=== PATIENT | female | born 1990 | race Caucasian/White ===

== ENCOUNTER 2018-08-28 16:53 | Observation (INO) | payer OTHER ==
[~2018-08-28] VITALS: Ht 157.5 cm; Wt 68.7 kg
[2018-08-28] MEDS ORDERED: CALC-1038 PO (17:03)
[2018-08-28] MEDS ORDERED: FERR-89 PO (17:03)
[2018-08-28] MEDS ORDERED: PREN1TAB80 PO (17:03)
[2018-08-28 17:08] VITALS: BP 121/75
[2018-08-28] MEDS ORDERED: RINGERS SOLUTION,LACTATED 1,000 ML IV ONE (17:21)
[2018-08-28] MEDS: RINGERS SOLUTION,LACTATED 1,000 ML IV SCH ×2 (17:43→23:01)
[2018-08-29] MEDS: RINGERS SOLUTION,LACTATED 1,000 ML IV SCH (07:36)
== END 2018-08-29 12:00 | disposition home or self-care (01) ==
LOC: 4S 16:53
PROVIDERS: ADMIT Obstetrics & Gynecology; ATTEND Obstetrics & Gynecology
DX: O41.03X0 Oligohydramnios, third trimester, not applicable or unspecified (principal); Z3A.30 30 weeks gestation of pregnancy
CPT/HCPCS: 36415; 76811; 81002; 89060; G0378 ×2; J7120

== ENCOUNTER 2018-10-02 15:45 | Observation (INO) | payer OTHER ==
[~2018-10-02 15:45] MED LIST: CALC-1038 PO; FERR-89 PO; PREN1TAB80 PO
[2018-10-02 17:22] LABS: BASOPHILS % (AUTO) 0.2 % (0.0-2.0); EOSINOPHILS % (AUTO) 1.3 % (1.0-6.0); HEMATOCRIT 29.8 % (36-46); HEMOGLOBIN 9.8 g/dL (12.0-16.0); LYMPHOCYTES # (AUTO) 1.6 K/uL (1.0-4.8); LYMPHOCYTES % (AUTO) 13.2 % (22.0-44.0); MEAN CORPUSCULAR HEMOGLOBIN 31.7 pg (26.0-34.0); MEAN CORPUSCULAR VOLUME 96 fL (80-100); MONOCYTES # (AUTO) 1.1 K/uL (0.1-1.0); MONOCYTES % (AUTO) 9.1 % (2.0-9.0); NEUTROPHILS # (AUTO) 9.2 K/uL (1.8-7.7); NEUTROPHILS % (AUTO) 76.2 % (40.0-70.0); PLATELET COUNT (AUTO)-OB 173 K/uL (150-450); RED CELL DISTRIBUTION WIDTH 13.9 % (11.5-14.5)
[2018-10-02 17:31] LABS: ANION GAP 10 mmol/L (8-16); CALCIUM, TOTAL 8.9 mg/dL (8.8-10.5); CARBON DIOXIDE 25 mmol/L (22-29); CHLORIDE 106 mmol/L (98-107); CREATININE 0.65 mg/dL (0.60-1.30); GLOMERULAR FILTR. RATE CALC > 60 mL/min (>60); GLUCOSE,RANDOM 88 mg/dL (70-110); POTASSIUM 3.7 mmol/L (3.5-5.1); SODIUM SERUM 141 mmol/L (136-145); UREA NITROGEN, BLOOD 11 mg/dL (7-18)
[2018-10-02 17:37] LABS: ALANINE AMINOTRANSFERASE 23 U/L (12-78); ALBUMIN 2.5 g/dL (3.4-5.0); ALKALINE PHOSPHATASE 85 U/L (46-116); ASPARTATE AMINOTRANSFERASE 19 U/L (15-37); BILIRUBIN,TOTAL 0.1 mg/dL (0.1-1.0); TOTAL PROTEIN, SERUM 5.9 g/dL (6.4-8.2); URIC ACID 4.6 mg/dL (2.6-7.2)
[2018-10-02 20:11] VITALS: BP 118/58
== END 2018-10-02 18:40 | disposition home or self-care (01) ==
LOC: 4S 15:45
PROVIDERS: ADMIT Obstetrics & Gynecology; ATTEND Obstetrics & Gynecology
DX: O13.3 Gestational [pregnancy-induced] hypertension without significant proteinuria, third trimester (principal); Z3A.35 35 weeks gestation of pregnancy
CPT/HCPCS: 36415; 80053; 84550; 85025; G0378

== ENCOUNTER 2018-10-27 00:54 | Observation (INO) | payer OTHER ==
[~2018-10-27] VITALS: Ht 157.5 cm; Wt 72.6 kg
[2018-10-27 03:16] VITALS: BP 116/72
[2018-10-28] MEDS ORDERED: PRED20 PO (12:06)
[2018-10-28] MEDS ORDERED: VALA100026 PO (12:07)
== END 2018-10-27 02:25 | disposition home or self-care (01) ==
LOC: 4S 00:54
PROVIDERS: ADMIT Obstetrics & Gynecology; ATTEND Obstetrics & Gynecology
DX: O62.9 Abnormality of forces of labor, unspecified (principal); Z3A.38 38 weeks gestation of pregnancy

== ENCOUNTER 2018-10-28 10:39 | Observation (INO) | payer OTHER ==
[~2018-10-28] VITALS: Ht 157.5 cm; Wt 73.5 kg
[2018-10-28] MEDS ORDERED: ValACYclovir HCL 500 MG TABLET PO ONE (12:00)
[2018-10-28] MEDS ORDERED: PredniSONE 20 MG TABLET PO ONE (12:00)
[2018-10-28 12:01] VITALS: BP 118/68
[2018-10-28] MEDS ORDERED: PRED20 PO (12:06)
[2018-10-28] MEDS ORDERED: VALA100026 PO (12:07)
[2018-10-28] MEDS ORDERED: ACETAMINOPHEN 325 MG TABLET PO ONE (13:00)
== END 2018-10-28 13:15 | disposition home or self-care (01) ==
LOC: 4S 10:39
PROVIDERS: ADMIT Obstetrics & Gynecology; ATTEND Obstetrics & Gynecology
DX: O26.893 Other specified pregnancy related conditions, third trimester (principal); R29.810 Facial weakness; Z3A.39 39 weeks gestation of pregnancy
CPT/HCPCS: 81002; G0378; J7512

== ENCOUNTER 2018-10-30 09:30 | Inpatient (IN) | payer OTHER ==
[~2018-10-30] VITALS: Ht 160 cm; Wt 72.6 kg
[~2018-10-30 09:30] MED LIST changes: +PRED20 PO; +VALA100026 PO
[2018-10-30] MEDS ORDERED: RINGERS SOLUTION,LACTATED 1,000 ML IV ONE ×2 (09:44→15:21)
[2018-10-30] MEDS ORDERED: CITRIC ACID/SODIUM CITRATE 30 ML SOLUTION UDCUP PO ONE (09:45)
[2018-10-30] MEDS ORDERED: METOCLOPRAMIDE HCL 5 MG/ML 2 ML VIAL IVP ONE (09:45)
[2018-10-30 10:22] LABS: BASOPHILS % (AUTO) 0.3 % (0.0-2.0); EOSINOPHILS % (AUTO) 0.9 % (1.0-6.0); HEMATOCRIT 31.2 % (36-46); HEMOGLOBIN 10.4 g/dL (12.0-16.0); LYMPHOCYTES % (AUTO) 14.6 % (22.0-44.0); MEAN CORPUSCULAR HGB CONC 33.2 G/dL (31.0-37.0); MEAN CORPUSCULAR VOLUME 96 fL (80-100); MONOCYTES # (AUTO) 1.1 K/uL (0.1-1.0); MONOCYTES % (AUTO) 7.7 % (2.0-9.0); NEUTROPHILS # (AUTO) 10.5 K/uL (1.8-7.7); NEUTROPHILS % (AUTO) 76.5 % (40.0-70.0); PLATELET COUNT (AUTO)-OB 166 K/uL (150-450); RED BLOOD CELL COUNT(AUTO) 3.24 MIL/uL (4.00-5.20); RED CELL DISTRIBUTION WIDTH 14.5 % (11.5-14.5)
[2018-10-30] MEDS ORDERED: ONDANSETRON HCL 4 MG/2 ML VIAL IVP ONE (12:00)
[2018-10-30] MEDS ORDERED: EPHEDrine SULFATE 50 MG/ML VIAL IM ONE (12:00)
[2018-10-30] MEDS ORDERED: 0.9% SODIUM CHLORIDE 10 ML VIAL IVP ONE (12:00)
[2018-10-30] MEDS ORDERED: MORPHINE SULFATE/PF 0.5 MG/ML 10 ML AMP ONE (12:07)
[2018-10-30] MEDS ORDERED: FentaNYL CITRATE-PF 100 MCG/2 ML VIAL ONE (12:07)
[2018-10-30] MEDS ORDERED: BUPIVACAINE HCL/DEX-WATER/PF 0.75% 2 ML AMP ONE (12:07)
[2018-10-30] MEDS ORDERED: ACETAMINOPHEN 1000 MG/ISO-OSM 100 ML IV ONE (12:07)
[2018-10-30] MEDS ORDERED: GUM MASTIC/STORAX/MSAL/ALCOHOL LIQUID 0.67 ML VIAL TP ONE (13:07)
[2018-10-30] MEDS ORDERED: DiphenhydrAMINE HCL 50 MG/ML VIAL IVP PRN ×2 (13:30)
[2018-10-30] MEDS ORDERED: NALBUPHINE HCL 10 MG/ML VIAL IVP PRN ×3 (13:30)
[2018-10-30] MEDS ORDERED: FentaNYL CITRATE-PF 100 MCG/2 ML VIAL IVP PRN (13:30)
[2018-10-30] MEDS ORDERED: NALOXONE HCL 0.4 MG/ML VIAL IVP PRN (13:30)
[2018-10-30] MEDS ORDERED: ONDANSETRON HCL 4 MG/2 ML VIAL IVP PRN ×2 (13:30)
[2018-10-30] MEDS ORDERED: MORPHINE SULFATE 10 MG/ML SYRINGE IVP PRN (13:30)
[2018-10-30] MEDS ORDERED: DEXAMETHASONE SOD PHOS 4 MG/ML VIAL IVP PRN (13:30)
[2018-10-30] MEDS ORDERED: OXYTOCIN 30 UNITS/LACT RINGERS 500 ML IV ONE (15:19)
[2018-10-30] MEDS: RINGERS SOLUTION,LACTATED 1,000 ML IV SCH ×2 (15:25→21:25)
[2018-10-30] MEDS ORDERED: OxyCODONE HCL/ACETAMINOPHEN 5-325 MG TABLET PO PRN ×2 (15:30)
[2018-10-30] MEDS ORDERED: LANOLIN 7 GM OINTMENT TP PRN (15:30)
[2018-10-30] MEDS ORDERED: OXYGEN THERAPY IH SCH ×3 (20:00)
[2018-10-30] MEDS: ACETAMINOPHEN 1000 MG/ISO-OSM 100 ML IV SCH (21:25)
[2018-10-30] MEDS: MAGNESIUM HYDROXIDE SUSPENSION 30 ML UDCUP PO SCH (21:25)
[2018-10-30] MEDS: PredniSONE 20 MG TABLET PO SCH (22:59)
[2018-10-30] MEDS: ValACYclovir HCL 500 MG TABLET PO SCH (23:28)
[2018-10-31] MEDS: ACETAMINOPHEN 1000 MG/ISO-OSM 100 ML IV SCH (05:08)
[2018-10-31 06:29] LABS: BASOPHILS % (AUTO) 0.1 % (0.0-2.0); EOSINOPHILS % (AUTO) 0.1 % (1.0-6.0); HEMATOCRIT 29.6 % (36-46); HEMOGLOBIN 9.8 g/dL (12.0-16.0); LYMPHOCYTES # (AUTO) 0.9 K/uL (1.0-4.8); LYMPHOCYTES % (AUTO) 5.9 % (22.0-44.0); MEAN CORPUSCULAR HEMOGLOBIN 31.8 pg (26.0-34.0); MEAN CORPUSCULAR HGB CONC 33.2 G/dL (31.0-37.0); MEAN CORPUSCULAR VOLUME 96 fL (80-100); MONOCYTES # (AUTO) 0.3 K/uL (0.1-1.0); MONOCYTES % (AUTO) 2.2 % (2.0-9.0); NEUTROPHILS # (AUTO) 13.4 K/uL (1.8-7.7); PLATELET COUNT (AUTO)-OB 169 K/uL (150-450); RED BLOOD CELL COUNT(AUTO) 3.09 MIL/uL (4.00-5.20); RED CELL DISTRIBUTION WIDTH 14.2 % (11.5-14.5)
[2018-10-31 06:40] LABS: NEUTROPHILS % (AUTO) 91.7 % (40.0-70.0)
[2018-10-31] MEDS: MAGNESIUM HYDROXIDE SUSPENSION 30 ML UDCUP PO SCH ×2 (09:15→21:36)
[2018-10-31] MEDS: ValACYclovir HCL 500 MG TABLET PO SCH ×3 (09:17→21:36)
[2018-10-31] MEDS: PredniSONE 20 MG TABLET PO SCH (09:17)
[2018-10-31] MEDS: IBUPROFEN 800 MG TABLET PO PRN (21:36)
[2018-11-01] MEDS: PredniSONE 20 MG TABLET PO SCH (08:48)
[2018-11-01] MEDS: MAGNESIUM HYDROXIDE SUSPENSION 30 ML UDCUP PO SCH (08:48)
[2018-11-01] MEDS: IBUPROFEN 800 MG TABLET PO PRN (08:48)
[2018-11-01] MEDS: ValACYclovir HCL 500 MG TABLET PO SCH (08:49)
[2018-11-01] MEDS ORDERED: ACET-2247 PO (13:48)
[2018-11-01] MEDS ORDERED: PERCT PO (13:49)
== END 2018-11-01 16:20 | disposition home or self-care (01) | DRG 788 ==
LOC: OBSVTOIN 09:30 → 4S 09:30
PROVIDERS: ADMIT Obstetrics & Gynecology; ATTEND Obstetrics & Gynecology
PROC: 10D00Z1 Extraction of Products of Conception, Low, Open Approach (ICD-10-PCS; principal; 2018-10-30)
DX: O34.211 Maternal care for low transverse scar from previous cesarean delivery (principal); Z3A.40 40 weeks gestation of pregnancy; Z37.0 Single live birth
CPT/HCPCS: 86850; 86900; 86901; 87081; J0131; J0690; J2274; J2405; J2765; J3010; J3490; J7120